=== PATIENT | female | born 1985 | race Caucasian/White ===

== ENCOUNTER 2020-06-11 09:15 | Emergency (ER) | payer OTHER, SELFPAY ==
[2020-06-11 09:34] VITALS: BP 144/102; PULSE 86; RESP 16; TEMP 36.2; O2SAT 99
--- NOTE | 2020-06-11 09:52 | ED.URI ---
HPI - URI/Sore Throat General Chief Complaint: Upper Respiratory Infection Stated Complaint: upper respiratory infection Time Seen by Provider: 06/11/20 09:36 Source: patient and RN notes reviewed Mode of arrival: ambulatory Limitations: no limitations History of Present Illness HPI Narrative: Patient presents today complaining of a 2-day history of sore throat, postnasal drip, bilateral ear pain and muffling, intermittent cough, rhinorrhea. Patient took 5 doses of the leftover amoxicillin at home, which helped resolve her sore throat. She has also been taking Tylenol, ibuprofen, and Mucinex without much relief. MD elicited complaint: sore throat and nasal congestion Related Data Allergies Allergy/AdvReac Type Severity Reaction Status Date / Time No Known Allergies Allergy Mild Unverified 06/11/20 09:28 Review of Systems Review of Systems: Narrative: CONSTITUTIONAL: Denies body aches, fever, chills, or sweats. EYES: Denies visual changes, redness, or discharge. ENT: + Rhinorrhea, nasal congestion, muffled hearing, bilateral ear pain, sore throat?resolved CARDIOVASCULAR: Denies chest pain, palpitations, or edema. RESPIRATORY: Denies dyspnea.+ Cough GASTROINTESTINAL: Denies abdominal pain, nausea, vomiting, or diarrhea. GENITOURINARY: Denies dysuria or hematuria. SKIN: Denies rash, itching, or wounds. MUSCULOSKELETAL: Denies back pain, joint pain, or myalgia. NEUROLOGIC: Denies headache, numbness, tingling, or weakness. PSYCH: Denies depression or anxiety. [facility] Family History Family History (Updated 06/03/19 @ 11:13 by DOCTOR UNKNOWN) Grandparent Diabetes mellitus Other Family history of malignant neoplasm of breast in first degree relative Social History Social History Smoking status: Never smoker Alcohol intake: current Comments At time of signature, I have reviewed and agree with nursing past medical, surgical, social and family history unless otherwise noted. Please see nursing chart for further information. There is no relevant family history pertinent to the presenting complaint Exam Narrative: Exam Narrative: GENERAL: Well-appearing, well-nourished, and in no acute distress. Diaphoretic under her mask. HEAD: Normocephalic, atraumatic. EYES: EOMI. No redness or drainage. Conjunctivae normal. ENT: Mucous membranes pink and moist. Nares congested. No rhinorrhea. Right TM is severely erythematous and bulging with purulent material. Left TM is mildly erythematous with clear fluid. Throat normal. Uvula midline. NECK: Normal AROM. Supple. No lymphadenopathy. CHEST: No respiratory distress. Clear to auscultation. HEART: Regular rate and rhythm. No murmur appreciated. Normal peripheral pulses. EXTREMITIES: Normal range of motion. No edema. SKIN: Warm, dry, no rash. Capillary refill normal. Normal skin turgor. NEURO: No focal deficits. Alert and oriented x3. Gait steady. PSYCH: Normal affect. No signs of depression or anxiety. Course Vital Signs Vital signs: Vital Signs Temperature 97.1 F L 06/11/20 09:34 Pulse Rate 86 06/11/20 09:34 Respiratory Rate 16 06/11/20 09:34 Blood Pressure 144/102 H 06/11/20 09:34 Pulse Oximetry 99 06/11/20 09:34 Temperature 97.1 F L 06/11/20 09:34 Pulse Rate 86 06/11/20 09:34 Respiratory Rate 16 06/11/20 09:34 Blood Pressure 144/102 H 06/11/20 09:34 Pulse Oximetry 99 06/11/20 09:34 Reviewed. Pt has been instructed to follow up with her PCP regarding her elevated blood pressure today. MDM - URI/Sore Throat Differential Diagnosis Differential diagnosis: Likely upper respiratory infection, otitis media, viral infection, bronchitis, pharyngitis and other (Strep throat) Lab Data Attestation: I reviewed the patient's lab results. Critical Care Time Critical Care Time Critical Care Time: No Discharge Plan Discharge Clinical Impression: Otitis media Qualifiers: Otitis media type: suppurative Chronicity: acute Laterality: r
[2020-06-11 10:00] VITALS: BP 120/86
== END 2020-06-11 10:00 | disposition home or self-care (01) ==
PROVIDERS: Emergency Provider Nurse Practitioner; PCP Internal Medicine
DX: H66.001 Acute suppurative otitis media without spontaneous rupture of ear drum, right ear (principal); J06.9 Acute upper respiratory infection, unspecified
CPT/HCPCS: 87081; 87880; 99213; G0463

== ENCOUNTER 2020-08-22 16:53 | Emergency (ER) | payer OTHER, SELFPAY ==
[2020-08-22 17:02] VITALS: BP 134/86; PULSE 86; RESP 16; TEMP 36.3; O2SAT 100
--- NOTE | 2020-08-22 17:23 | ED.URI ---
HPI - URI/Sore Throat General Chief Complaint: Upper Respiratory Infection Stated Complaint: Sore Throat Time Seen by Provider: 08/22/20 17:15 Source: patient and RN notes reviewed Mode of arrival: ambulatory Limitations: no limitations History of Present Illness HPI Narrative: Patient presents today with a 2-day history of sore throat, bilateral ear pain, increased tearing, rhinorrhea, and congestion. Denies cough, fever, loss of taste or smell. Currently rates her sore throat 05/11. She has been trying Claritin, nasal decongestant, and Tylenol without much relief. MD elicited complaint: sore throat Related Data Home Medications Medication Instructions Recorded Confirmed Unknown Iud 08/22/20 Allergies Allergy/AdvReac Type Severity Reaction Status Date / Time No Known Allergies Allergy Mild Verified 08/22/20 17:10 Review of Systems Review of Systems: Narrative: CONSTITUTIONAL: Denies body aches, fever, chills, or sweats. EYES: Denies visual changes, redness, or discharge.+ Clear eye drainage ENT: + Bilateral ear pain, sore throat, rhinorrhea, congestion CARDIOVASCULAR: Denies chest pain, palpitations, or edema. RESPIRATORY: Denies cough or dyspnea. GASTROINTESTINAL: Denies abdominal pain, nausea, vomiting, or diarrhea. GENITOURINARY: Denies dysuria or hematuria. SKIN: Denies rash, itching, or wounds. MUSCULOSKELETAL: Denies back pain, joint pain, or myalgia. NEUROLOGIC: Denies headache, numbness, tingling, or weakness. PSYCH: Denies depression or anxiety. [facility] Family History Family History (Updated 06/03/19 @ 11:13 by DOCTOR UNKNOWN) Grandparent Diabetes mellitus Other Family history of malignant neoplasm of breast in first degree relative Social History Social History Smoking status: Never smoker Alcohol intake: current Gender identity (if verbalized by the patient): Female Comments At time of signature, I have reviewed and agree with nursing past medical, surgical, social and family history unless otherwise noted. Please see nursing chart for further information. There is no relevant family history pertinent to the presenting complaint Exam Narrative: Exam Narrative: GENERAL: Well-appearing, well-nourished, and in no acute distress. HEAD: Normocephalic, atraumatic. EYES: EOMI. PERRL. No redness or drainage. Conjunctivae normal. Increased tearing. ENT: Mucous membranes pink and moist. Nares congested with rhinorrhea. TMs normal bilaterally. Throat very mildly erythematous posteriorly with clear postnasal drainage. No edema or exudate. Uvula midline. NECK: Normal AROM. Supple. No lymphadenopathy. CHEST: No respiratory distress. Clear to auscultation. HEART: Regular rate and rhythm. No murmur appreciated. Normal peripheral pulses. EXTREMITIES: Normal range of motion. No edema. SKIN: Warm, dry, no rash. Capillary refill normal. Normal skin turgor. NEURO: No focal deficits. Alert and oriented x3. Gait steady. PSYCH: Normal affect. No signs of depression or anxiety. Course Vital Signs Vital signs: Vital Signs Temperature 97.3 F L 08/22/20 17:02 Pulse Rate 86 08/22/20 17:02 Respiratory Rate 16 08/22/20 17:02 Blood Pressure 134/86 08/22/20 17:02 Pulse Oximetry 100 08/22/20 17:02 Temperature 97.3 F L 08/22/20 17:02 Pulse Rate 86 08/22/20 17:02 Respiratory Rate 16 08/22/20 17:02 Blood Pressure 134/86 08/22/20 17:02 Pulse Oximetry 100 08/22/20 17:02 Reviewed. Pt has been instructed to follow up with her PCP regarding her elevated blood pressure today. MDM - URI/Sore Throat Differential Diagnosis Differential diagnosis: Likely upper respiratory infection, otitis media, viral infection, pharyngitis and other (Strep throat, rhinitis) Lab Data Attestation: I reviewed the patient's lab results. Labs: Strep Screen Presumptive Negative *(Reference Range: Negative)* Critical Care Time
== END 2020-08-22 17:29 | disposition home or self-care (01) ==
PROVIDERS: Emergency Provider Nurse Practitioner; PCP Internal Medicine
DX: J02.9 Acute pharyngitis, unspecified (principal)
CPT/HCPCS: 87081; 87880; 99213; G0463

== ENCOUNTER 2021-07-10 09:19 | Emergency (ER) | payer OTHER, SELFPAY ==
[2021-07-10 09:38] VITALS: BP 120/84; PULSE 82; RESP 16; TEMP 36.1; O2SAT 99
--- NOTE | 2021-07-10 10:31 | ED.EYEPROB ---
HPI - Eye Problem General Chief complaint: Eye Problems Stated complaint: mariaa redness eyes Time Seen by Provider: 07/10/21 10:31 Source: patient, family and RN notes reviewed Mode of arrival: ambulatory Limitations: no limitations History of Present Illness HPI Narrative: 36 year old female who presents to [facility] care with complaints of bilateral eye redness, drainage especially in the morning with crusting on lashes noted, itching and pain. since Thursday night. Patient states daughter had pinkeye approximately 3 weeks ago and she thinks that she may of used her mascara. Patient states she used mascara Mo night and before bed she noticed redness to her eyes with symptoms progressing since then with left eye greater than right.Patient denies any acute sharp pain to the eyes denies any visual changes. Patient states she has used some eyedrops that had been prescribed and her daughter was diagnosed with pinkeye but has run out with symptoms continuing. MD chief complaint: eye redness Related Data Home Medications Medication Instructions Recorded Confirmed Unknown Iud 08/22/20 Allergies Allergy/AdvReac Type Severity Reaction Status Date / Time No Known Allergies Allergy Mild Verified 07/10/21 10:28 Review of Systems Review of Systems: CONSTITUTIONAL: Denies fever, chills, or sweats. EYES: Denies visual changes,positive for redness, or discharge bilateral eyes, itching and discomfort ENT: Denies rhinorrhea, congestion, sore throat, or otalgia. CARDIOVASCULAR: Denies chest pain, palpitations, or edema. RESPIRATORY: Denies cough or dyspnea. GASTROINTESTINAL: Denies abdominal pain, nausea, vomiting, or diarrhea. GENITOURINARY: Denies dysuria or hematuria. SKIN: Denies rash or itching. MUSCULOSKELETAL: Denies back pain, joint pain, or myalgia. NEUROLOGIC: Denies headache, numbness, or weakness. PSYCHIATRIC: Positive history in past with of family member anxiety or depression. All systems reviewed & are unremarkable except as noted in HPI and below PMFSH Past Medical History Medical History Bronchitis Surgical History Surgical History (Updated 07/10/21 @ 10:54 by Elizabet Shafer NP) Hx of tonsillectomy Family History Family History (Updated 07/10/21 @ 10:55 by Elizabet Shafer NP) Grandparent Diabetes mellitus Arthritis Other Family history of malignant neoplasm of breast in first degree relative Social History Social History (Updated 07/10/21 @ 10:55 by Elizabet Shafer NP) Smoking status: Never smoker Alcohol intake: current Substance use: never Living arrangements: with family Gender identity (if verbalized by the patient): Female Comments At time of signature, agree with nursing past medical, surgical, social and family history. There is no relevant family history pertinent to the presenting complaint Exam Narrative: GENERAL: Well-appearing, well-nourished, and in no acute distress. HEAD: Normocephalic, atraumatic. EYES: PERRLA and EOMI.bilateral sclera and conjunctiva redness with some yellowish drainage from eyes, no sharp eye pain or acute visual changes ENT: Nares clear, no rhinorrhea or epistaxis. Mucous membranes moist. NECK: Supple. no lymphadenopathy CHEST: Clear to auscultation. No respiratory distress.SAO2 99% on room air HEART: Regular rate and rhythm. No murmur heard. Normal peripheral pulses. ABDOMEN: Soft, nontender, nondistended, normal active bowel sounds. EXTREMITIES: Normal range of motion. No edema. SKIN: Warm, dry, no rash. NEURO: No focal deficits. Alert and oriented x3. Course Vital Signs Vital signs: Vital Signs Temperature 36.1 C L 07/10/21 09:38 Pulse Rate 82 07/10/21 09:38 Respiratory Rate 16 07/10/21 09:38 Blood Pressure 120/84 07/10/21 09:38 Pulse Oximetry 99 07/10/21 09:38 Temperature 36.1 C L 07/10/21 09:38 Pulse Rate 82 07/10/21 09:38 Respiratory Rate 16
== END 2021-07-10 10:55 | disposition home or self-care (01) ==
PROVIDERS: Emergency Provider Registered Nurse; PCP Internal Medicine
DX: H10.9 Unspecified conjunctivitis (principal)
CPT/HCPCS: 99213; G0463

== ENCOUNTER 2022-01-02 11:58 | Emergency (ER) | payer OTHER, SELFPAY ==
[2022-01-02 12:06] VITALS: BP 135/88; PULSE 95; RESP 16; TEMP 37.1; O2SAT 99
--- NOTE | 2022-01-02 12:08 | ED.URI ---
HPI - URI/Sore Throat General Chief Complaint: Upper Respiratory Infection Stated Complaint: uri Time Seen by Provider: 01/02/22 12:09 Source: patient, RN notes reviewed and old records reviewed Mode of arrival: ambulatory Limitations: no limitations History of Present Illness HPI Narrative: 36-year-old female presents to [facility] Care with complaints of 2 week history of initial sore throat then developed sinus congestion and drainage with facial pressure and frontal headache. Patient reports that she has been taking Mucinex, Claritin and Advil and Tylenol for her symptoms without resolution. Patient reports that she has copious amount of nasal drainage which is greenish tinged with some streaks of blood noted for the past few days., denies any acute cough or any shortness of breath. Patient reports that she has had no known fevers but has noted some chills and sweats at night. MD elicited complaint: rhinorrhea and nasal congestion Related Data Home Medications Medication Instructions Recorded Confirmed Unknown Iud 08/22/20 Allergies Allergy/AdvReac Type Severity Reaction Status Date / Time No Known Allergies Allergy Mild Verified 07/10/21 10:28 Review of Systems Review of Systems: CONSTITUTIONAL: Denies known fever, some chills, or sweats. EYES: Denies visual changes, redness, or discharge. ENT: Positive for rhinorrhea, congestion, sore throat, no otalgia. CARDIOVASCULAR: Denies chest pain, palpitations, or edema. RESPIRATORY: Denies cough or dyspnea. GASTROINTESTINAL: Denies abdominal pain, nausea, vomiting, or diarrhea. GENITOURINARY: Denies dysuria or hematuria. SKIN: Denies rash or itching. MUSCULOSKELETAL: Denies back pain, joint pain, or myalgia. NEUROLOGIC: Positive frontal headache, facial pressure, no numbness, or weakness. PSYCHIATRIC: Denies anxiety positive for history of episode of depression with loss of family member. All systems reviewed & are unremarkable except as noted in HPI and below PMFSH Past Medical History Medical History (Updated 01/02/22 @ 12:36 by Elizabet Shafer NP) Bronchitis Episode of depression Surgical History Surgical History Hx of tonsillectomy Family History Family History Grandparent Diabetes mellitus Arthritis Other Family history of malignant neoplasm of breast in first degree relative Social History Social History (Updated 01/02/22 @ 12:23 by Elizabet Shafer NP) Smoking status: Current every day smoker Tobacco type: e-cigarettes/vaping Additional smoking assessment comments: previous cigarette smoker Alcohol intake: current Substance use: never Living arrangements: with family Gender identity (if verbalized by the patient): Female Comments At time of signature, agree with nursing past medical, surgical, social and family history. There is no relevant family history pertinent to the presenting complaint Exam Narrative: GENERAL: Well-appearing, well-nourished, and in no acute distress. HEAD: Normocephalic, atraumatic. EYES: PERRLA and EOMI. ENT: Nares red with greenish blood tinged rhinorrhea no epistaxis. Mucous membranes moist.TM's normal with dull light reflex, throat red with no lesions or exudates, tonsils absent NECK: Supple. no lymphadenopathy CHEST: Clear to auscultation. No respiratory distress. SAO2 99% on room air HEART: Regular rate and rhythm. No murmur heard. Normal peripheral pulses. ABDOMEN: Soft, nontender, nondistended, normal active bowel sounds. EXTREMITIES: Normal range of motion. No edema. SKIN: Warm, dry, no rash. NEURO: No focal deficits. Alert and oriented x3. Course Course Level of Care: Express Care Visit Vital Signs Vital signs: Vital Signs Temperature 37.1 C 01/02/22 12:06 Pulse Rate 95 01/02/22 12:06 Respiratory Rate 16 01/02/22 12:06 Blood Pressure 135/88 01/02/22 12:06 Puls
[2022-01-02 12:14] VITALS: BP 135/88; PULSE 95; RESP 16; TEMP 37.1; O2SAT 99
== END 2022-01-02 12:30 | disposition home or self-care (01) ==
PROVIDERS: Emergency Provider Registered Nurse; PCP Internal Medicine
DX: J01.40 Acute pansinusitis, unspecified (principal); J02.9 Acute pharyngitis, unspecified; F17.200 Nicotine dependence, unspecified, uncomplicated
CPT/HCPCS: 99213; G0463

== ENCOUNTER 2024-08-08 06:03 | Emergency (ER) | payer OTHER, SELFPAY ==
--- NOTE | ~2024-08-08 | US_ITS ---
Limited Abdominal Sonogram: Real-time sonographic imaging of the right upper quadrant was performed. Clinical History: Gallbladder polyp, abdominal pain Findings: The liver appears normal with no evidence of mass lesion or bile duct dilatation. Main por uday vein demonstrates normal direction of flow. The gallbladder is well distended, and demonstrates p robable small stones the gallbladder neck. The common bile duct measures 5 mm. The visualized pancre as, aorta, and IVC are unremarkable. Impression: Probable small stones the gallbladder neck. Reviewed, dictated and finalized at location M. Impression: Probable small stones the gallbladder neck.
--- NOTE | ~2024-08-08 | CT_ITS ---
CT of the Abdomen and Pelvis: Indication: Abdominal pain Technique: 2.5 mm axial scans were obtained through the abdomen and pelvis following intravenous adm inistration of 100 cc of Omnipaque 350. Dose reduction technique was used on this scan by utilizing a utomated exposure control and iterative reconstruction technique. The dose-length product (DLP) was 8 11.05 mGy-cm. Findings: Scans through the lung bases are unremarkable. The liver, spleen, pancreas, adrenals and kidneys are within normal limits. Suspected small gallbladd er wall polyp. No evidence of aortic aneurysm. No lymphadenopathy. No bowel obstruction or bowel wall thickening. There is no evidence to suggest acute appendicitis. Images through the pelvis were performed. Urinary bladder unremarkable. No adnexal mass seen. IUD in place. No ascites. Impression: No acute abnormalities seen. Suspected small gallbladder wall polyp. Reviewed, dictated and finalized at [facility]. Impression: No acute abnormalities seen. Suspected small gallbladder wall polyp.
[2024-08-08 06:17] VITALS: BP 122/93; PULSE 97; RESP 18; TEMP 36.6; O2SAT 100
[2024-08-08 06:20] VITALS: BP 122/93; PULSE 101; RESP 18; O2SAT 99
[2024-08-08 06:38] LABS: Basophils Absolute Auto 0.1 K/mm3 (0.0-0.1); Basophils Percent Auto 0.5 % (0.2-1.2); Eosinophils Percent Auto 8.5 % (0-4.4); Hematocrit 41.1 % (37.0-47.0); Hemoglobin 14.3 g/dL (12.0-15.0); Immature Granulocyte Absolute 0.03 K/mm3 (0.00-0.031); Immature Granulocyte Percent A 0.3 % (0-0.5); Lymphocytes Absolute Auto 4.07 K/mm3 (0.9-3.2); Lymphocytes Percent Auto 36.4 % (18.3-44.2); Mean Corpuscular HGB Conc 34.8 g/dl (32-36); Mean Corpuscular Volume 91.9 fl (80-100); Mean Platelet Volume 9.3 fl (7.4-10.4); Monocytes Absolute Auto 0.6 K/mm3 (0.1-0.6); Monocytes Percent Auto 5.6 % (2.6-8.5); Neutrophils Absolute Auto 5.4 K/mm3 (1.3-6.7); Neutrophils Percent Auto 48.7 % (45.5-73.1); Platelet Count Result 376 k/mm3 (150-375); Red Blood Count 4.47 M/mm3 (4.2-5.4); Red Cell Distribution Width 11.4 % (11.5-14.5); White Blood Count 11.2 K/mm3 (4.5-10.0)
[2024-08-08 06:44] LABS: Add Urine Microscopic? NO; Appearance Urine Clear (Clear); Bacteria Urine None Seen /hpf; Bilirubin Urine Negative (Negative); Blood Urine Non-Hemolyzed Trace (Negative); Color Urine Yellow (Yellow); Glucose Urine UA Negative (Negative); Ketones Urine Negative (Negative); Leukocyte Esterase Ur Negative LEU/UL (Negative); Nitrate Urine Negative (Negative); Non Pathogenic Casts 0-2; Protein Urine Negative (Negative); RBC Urine 0-2 /hpf (0-2); Specific Grav Ur 1.023 (1.001-1.035); Squamous Epithelial Cell Urine Occasional /hpf (Few); WBC Urine 0-5 /hpf (0-3); pH Urine 5.5 (5.0-9.0)
[2024-08-08 06:46] LABS: BEDSIDEPREGUCG Negative (Negative)
[2024-08-08 06:48] LABS: Alanine Aminotransferase 24 U/L (6-35); Albumin Level 4.6 g/dL (3.5-5.1); Alkaline Phosphatase 54 U/L (38-126); Anion Gap 10 mmol/L (4-12); Aspartate Amino Transferase 24 U/L (14-36); Bilirubin,Total 0.5 mg/dL (0.2-1.3); Blood Urea Nitrogen 12 mg/dL (7-17); Calcium 9.5 mg/dL (8.4-10.2); Carbon Dioxide 25 mmol/L (22-30); Chloride 103 mmol/L (98-107); Estimated CRCL calculation 111 ml/min; Estimated Glomerular Filt Rate > 60; Glucose 145 mg/dL (65-110); Lipase 374 U/L (23-300); Potassium 3.9 mmol/L (3.4-5.0); Sodium 138 mmol/L (137-145)
[2024-08-08 07:16] VITALS: BP 127/99; PULSE 76; RESP 15; O2SAT 100
--- NOTE | 2024-08-08 07:52 | ED.ABDPAIN ---
HPI - Abdominal Pain General Chief Complaint: Abdominal Pain Stated Complaint: Woke up with right abd/back pain Time Seen by Provider: 08/08/24 06:59 History of Present Illness HPI narrative: 39-year-old female presenting to the emergency department for evaluation for right upper quadrant abdominal pain. Patient has no prior history of pancreatitis or gallbladder issues. Patient states she woke up with intense right upper quadrant abdominal pain that radiates into her back. Patient states since the pain started has significantly improved. Patient states she is resting more comfortably than previous. Patient is currently declining any medications for pain control. Related Data Home Medications Medication Instructions Recorded Confirmed Unknown Iud 08/22/20 01/28/24 compounded semaglutide subcut 01/28/24 01/28/24 Allergies Allergy/AdvReac Type Severity Reaction Status Date / Time No Known Allergies Allergy Mild Verified 08/08/24 06:21 Review of Systems Review of Systems: All systems reviewed & are unremarkable except as noted in HPI and below PMFSH Past Medical History Medical History Bronchitis Episode of depression Surgical History Surgical History Hx of tonsillectomy Family History Family History Grandparent Diabetes mellitus Arthritis Other Family history of malignant neoplasm of breast in first degree relative Social History Social History Smoking status: Former smoker Tobacco type: e-cigarettes/vaping Additional smoking assessment comments: previous cigarette smoker Alcohol intake: current Substance use: never Lack of Transportation: No Lack of Food: Never True Current Housing: I Have Housing Concerned About Future Housing: No Difficulty Paying Gas/Electric Bills: No Difficulty Paying for Meds: No Currently Unemployed: No Education: High School Diploma/GED Difficulty w/ Childcare or Family Care: No Living arrangements: with family Gender identity (if verbalized by the patient): Female Exam Narrative: APPEARANCE: Well appearing, no pain, no distress, well-nourished. HEAD: normocephalic, atraumatic. EYES: PERRLA/EOMI, conjunctivae clear. NOSE: Normal no drainage EARS:TMS clear with good light reflex. THROAT: Pharynx clear, no exudate. NECK: Supple. No adenopathy, no masses. RESPIRATORY: Airway patent, respirations nonlabored. Clear to auscultation bilaterally, no rales, rhonchi, wheezing. CARDIOVASCULAR: Regular rate and rhythm without murmurs rubs or gallops. ABDOMINAL: Right upper quadrant and epigastric tenderness MUSCULOSKELETAL: Moves all extremities. Strength/ROM intact, No edema, No calf tenderness. NEURO: Alert. Cranial nerves II through XII intact. Good gait. Good coordination SKIN: Warm, dry. Normal Color Course Course Emergency Course: Patient did feel improved with treatment. Vital Signs Vital signs: Vital Signs Temperature 97.8 F 08/08/24 06:17 Pulse Rate 97 08/08/24 06:17 Respiratory Rate 18 08/08/24 06:17 Blood Pressure 122/93 H 08/08/24 06:17 Pulse Oximetry 100 08/08/24 06:17 Oxygen Delivery Room Air 08/08/24 06:17 Temperature 97.5 F L 08/08/24 09:27 Pulse Rate 66 08/08/24 09:27 Respiratory Rate 15 08/08/24 09:27 Blood Pressure 109/78 08/08/24 09:27 Pulse Oximetry 98 08/08/24 09:27 Oxygen Delivery Room Air 08/08/24 06:17 MDM - Abdominal Pain MDM Narrative Medical decision making narrative: 39-year-old female present to the emergency department for evaluation for right upper quadrant pain. Patient's lipase was mildly elevated at 374. Patient does have a leukocytosis at 11.2. Patient has a normal hemoglobin. Patient has no significant elevation he
[2024-08-08 08:44] VITALS: BP 111/82; PULSE 71; RESP 16; O2SAT 99
[2024-08-08 09:27] VITALS: BP 109/78; PULSE 66; RESP 15; TEMP 36.4; O2SAT 98
== END 2024-08-08 09:29 | disposition home or self-care (01) ==
PROVIDERS: Internal Medicine Critical Care Medicine; Emergency Provider Emergency Medicine; PCP Nurse Practitioner Family
DX: K80.70 Calculus of gallbladder and bile duct without cholecystitis without obstruction (principal); Z87.891 Personal history of nicotine dependence
CPT/HCPCS: 36415; 74177; 76705; 80053; 81003; 81025; 83690; 85025; 99284; Q9967

== ENCOUNTER 2025-03-20 14:10 | Outpatient (CLI) | payer OTHER, SELFPAY ==
--- OUTSIDE RECORDS SUMMARY | 2025-03-20 14:22 | XMS_ITS | Clinical Summary ---
Author Organization [facility] Address [address] [place] [address] Care Team Providers Care Passenger Representative Name Role Phone Unknown, Provider Primary Care Provider Unavaila ble Source Comments [facility],non-owned Affiliates and Associated Physician Practices is amultiple site organization consisting of ambulatory clinics and hospital sitesin [place], [place], [place] and [place]. This disclosure is being madepursuant to the Care Everywhere program and may not contain all information available regarding this patient. Last updated 18.[facility] Allergies No known active allergies Medications * Be aware that medications may not be up to date on this document. Alwaysverify current medications with the patient. 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 Gender Identity Not on file Sexual Orientation Not on file Last Filed Vital Signs Vital Sign Reading Time Taken Comments Blood Pressure 124/82 11/28/2019 11:18 AM PATTERN DRUM MAKER Pulse 77 11/28/2019 11:18 AM PATTERN DRUM MAKER Temperature 36.6 C (97.8 F) 11/28/2019 11:18 AM PATTERN DRUM MAKER Respiratory Rate 16 11/28/2019 11:18 AM PATTERN DRUM MAKER Oxygen Saturation 98% 11/28/2019 11:18 AM PATTERN DRUM MAKER Inhaled Oxygen Concentration - - Weight 97.5 kg (215 lb) 11/28/2019 11:18 AM PATTERN DRUM MAKER Height 170.2 cm (5' 7 ) 11/28/2019 11:18 AM PATTERN DRUM MAKER Body Mass Index 33.67 11/28/2019 11:18 AM PATTERN DRUM MAKER Plan of Treatment Health Maintenance Due Date Last Done Comments HIV SCREENING 2002 HEPATITIS C SCREENING 06/17/2005 DTAP/TDAP/TD VACCINES (1 - Tdap) 2006 HEPATITIS B VACCINE (1 of 3 - 19+ 3-dose series) 2006 COVID-19 VACCINE (1 - 2023-2 5 season) 2024 DEPRESSION SCREENING 11/02/2024 INFLUENZA VACCINE (Season Ended) 2025 ZOSTER VACCINE (1 of 2) 2037 HIB VACCINE Aged Out No longer eligi ble based on patient's age to complete this topic HPV VACCINE Aged Out No longer eligi ble based on patient's age to complete this topic MENINGOCOCCAL (Group B) VACC INE SHARED DECISION-MAKING Aged Out No longer eligibl e based on patient's age to complete this topic MENINGOCOCCAL GROUPS A/C/Y/W VACCINE Aged Out No longer eligible b ased on patient's age to complete this topic PNEUMOCOCCAL VACCINE Aged Out No long er eligible based on patient's age to complete this topic Insurance AETNA Care Teams Passenger Representative Relationship Specialty Start Date End Date Unknown, Provider PCP - General 11/28/19
[2025-03-20 15:31] LABS: Alanine Aminotransferase 23 U/L (6-35); Albumin Level 4.9 g/dL (3.5-5.1); Alkaline Phosphatase 59 U/L (38-126); Amylase 81 U/L (30-110); Aspartate Amino Transferase 33 U/L (14-36); Bilirubin,Total 0.3 mg/dL (0.2-1.3); Lipase 231 U/L (23-300)
== END 2025-03-20 14:11 | disposition home or self-care (01) ==
LOC: ANHSURGERY 14:19
PROVIDERS: PCP Nurse Practitioner Family; Visit Provider Surgery
DX: K80.10 Calculus of gallbladder with chronic cholecystitis without obstruction (principal); Z01.818 Encounter for other preprocedural examination
CPT/HCPCS: 36415; 80076; 82150; 83690

== ENCOUNTER 2025-03-23 01:48 | Day surgery (SDC) | payer OTHER, SELFPAY ==
[2025-03-14 11:08] VITALS: BMI 32.8
--- NOTE | 2025-03-14 14:19 | PC.NURSE ---
Report to the Outpatient Waiting Room, entrance under the green pavilion located off [facility], at time _10AM__ on date _03/23/25____. Planned Procedure Time: ___12AM .? Time changes happen often and if your time is changed the preop area will call you the afternoon before. - You and your visitor will be asked to self-screen and do not enter if you have any COVID symptoms. Please call surgeon if you need to reschedule. - A mask is optional within the hospital at this time. Patients may have clear liquids (water, carbonated beverages, clear teas, apple juice) until 3 hours prior to surgery with a maximum of 20 ounces. - No food from midnight until time of surgery and no smoking, or chewing tobacco (or any form of nicotine). No chewing gum, candy or mints. Take only the following medications with a SIP of water on the morning of surgery: __NONE DO NOT STOP ANY OF YOUR OTHER PRESCRIPTION MEDICATIONS PRIOR TO SURGERY EXCEPT THE FOLLOWING Hold all vitamins and supplements for 3 days per anesthesiologist. Medications to discontinue per physician N/A Date to take last dose N/A Please no make-up, nail turkish, hairspray, perfume, deodorant, or body powder the day of surgery.? No jewelry (including any body piercings) or valuables the day of surgery, leave them at home.? Please take a shower or bath the night before, or the morning of, surgery with an antibacterial soap.? Wear comfortable, loose fitting clothing.? - Jewelry must be removed prior to entering the operating room.? Rings and piercings that are not removed may be cut off. - The hospital will not accept responsibility for valuables.? - Please leave all valuables, including medications, at home the day of surgery. If you are going home after surgery, a licensed food service driver must drive you home.? - NO public transportation without another adult if you receive anesthesia. - We recommend that an adult stay with you for 24 hours following discharge. - We also recommend that you do not drive, make important decision, drink alcoholic beverages, or take any drugs that were not prescribed by your health care provider for at least 24 hours after your discharge time. Follow any additional instructions given to you from your surgeon. Telephone instructions given to __JAMIE and asked if any additional questions and then verbalized understanding. Patient advised to call surgeon office or pre surgery nurse liaison [phone] if any additional questions.
--- NOTE | 2025-03-22 13:09 | P.SS_ITS ---
Same Day Admit/Disch: HPI History of Present Illness Chief complaint: chronic cholecystitis with stones Narrative: Jac Gardner is a 39 year old female who has had at least a couple of episodes of postprandial right upper quadrant severe pain. This is worse with fatty foods. Her ultrasound showed gallstones. After discussion, she is taken now to surgery for laparoscopic cholecystectomy PMFSH Past Medical History Medical History Episode of depression Bronchitis Surgical History Surgical History Hx of tonsillectomy Family History Family History Grandparent Diabetes mellitus Arthritis Other Family history of malignant neoplasm of breast in first degree relative Social History Social History Smoking packs per day: 1 Smoking cigarettes per day: 20.0 Years smoked: 10 Smoking pack-years: 10.00 Smoking status: Current every day smoker Tobacco type: e-cigarettes/vaping Additional smoking assessment comments: QUIT SMOKING 2019 AND BEGAN VAPING Alcohol intake: current Substance use: never Substance use type: does not use Do You Feel Safe in your Home?: Yes Lack of Transportation: No Lack of Food: Never True Current Housing: I Have Housing Concerned About Future Housing: No Difficulty Paying Gas/Electric Bills: No Difficulty Paying for Meds: No Currently Unemployed: No Education: High School Diploma/GED Difficulty w/ Childcare or Family Care: No Living arrangements: with family Occupation/Education: occupation 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[employer] Gender identity (if verbalized by the patient): Female Spiritual care concerns: No Same Day Admit/Disch: Med Pre-admit Medications Home Medications ?Medication ?Instructions ?Recorded ?Confirmed ?Type Unknown Iud 08/22/20 01/28/25 History ketorolac 10 mg tablet 10 mg PO Q6H 4 days #16 tabs 03/23/25 Rx oxycodone-acetaminophen 5 mg-325 0.5 - 1 tablet PO Q4H PRN pain #10 03/23/25 Rx mg tablet (Percocet) tabs Review of Systems Review of Systems All systems reviewed & are unremarkable except as noted in HPI and below (HPI) Exam Const: General: comfortable, no acute distress, alert and awake HENMT: Head: normocephalic and atraumatic Mouth: Yes Normal oral and palatal mucosa present Eyes: Conjunctivae: conjunctivae normal Pupils: Equal, round and reactive p upils present EOM: EOMs intact bilaterally Neck: Neck: normal visual inspection, no lymphadenopathy and nontender Resp: Effort & Inspection: normal respiratory effort Auscultation: clear to auscultation bilaterally Cardio: Rate: regular rate Rhythm: regular rhythm Heart sounds: no gallops, no murmurs and no rubs GI: Inspection: non-distended GI Palp: Yes Soft to palpation, No Tenderness to palpation present (GI), No Hepatomegaly present and No Splenomegaly present Skin: Lesions: no lesions Rashes: no rashes Neuro: General: no focal motor deficits and CN's II-XI intact bilaterally Cranial nerves: Yes Equal, round and reactive pupils present, Yes Bilaterally intact EOM present, Yes facial symmetry and Yes Midline tongue present Speech: normal speech Motor exam (neuro): 5/5 motor strength present throughout and Motor abnormalities not present Extrem: General: no clubbing, cyanosis or edema and edema Psych: Affect: normal affect Thought process: Normal thought process present Insight: Good insight present (Psych) DS: Summary Time Spent with Patient Time attestation: Total time spent providing and/or coordinating discharge services: DS: Admitting Diagnosis Discharge Date 03/23/2025 Admitting Diagnosis * Chronic cholecystitis, cholelithiasis-plan to proceed with laparoscopic cholecystectomy under anesthesia. The procedure, risks, benefits were discussed. The usual length of the surgery and length of the recovery were discussed. All questions were answered. She understands and agrees to go ahead. DS: Discharge Diagnosis Discharge Diagnosis (1) Chronic cholecystitis with calculus: Code(s): K80.10 - Calculus of gallbladder with chronic cholecystitis without obstruction Status: Acute Assessment and Plan: Laparoscopic cholecystectomy performed per Dr. Kennedy 03/23/2025 Discharge Plan Discharge Patient Disposition: Home Discharge Instructions: 1. May shower the day after surgery over incisions. 2. Call office for: -Wound increasingly painful or bleeding -Vomiting -Fever of greater than 101 degrees 3. Expect some blood on dressing and old blood on skin. 4. If no bowel movement for three days, take 1 oz. (30 ml) Milk of Magnesia, if no results, take Fleets enema. 5. No heavy lifting > 15-20 pounds for 2 weeks. 6. No driving for 3 days or while taking narcotic pain medications. 7. Up walking 10-30 minutes three times per day. 8. Resume previous home medications. 9. Follow-up 10-14 days in office for wound check or as previously scheduled. 10. Oral pain medications prescription to be sent home with patient. 11. NUTRITION: Start out by drinking fluids and increase your diet as tolerated. If you experience nausea, try dry toast, crackers, and 7-UP. If nausea or vomiting persists, contact your surgeon?s office. Patient Language: Slovenian Stand Alone Forms: General Discharge Instructions Follow-up/Referrals: Brodie Kennedy MD [Physician] - 2 Weeks (Call for appointment if you do not already have an appointment.) Discharge Medications: New ketorolac 10 mg tablet 10 mg PO Q6H 4 Days Qty: 16 0RF oxycodone-acetaminophen [Percocet] 5-325 mg tablet 0.5 - 1 tablet PO Q4H PRN (Reason: pain) Qty: 10 0RF Continued Unknown Iud
[2025-03-23] VITALS (9 sets, daily range): BP systolic 118–129; BP diastolic 77–88; PULSE 61–84; RESP 12–13; TEMP 36.5; O2SAT 96–100
--- OUTSIDE RECORDS SUMMARY | 2025-03-23 01:51 | XMS_ITS | Clinical Summary ---
Author Organization [facility] Address [address] [place] [address] Care Team Providers Care Legal Internship Name Role Phone Unknown, Provider Primary Care Provider Unavaila ble Source Comments [facility],non-owned Affiliates and Associated Physician Practices is amultiple site organization consisting of ambulatory clinics and hospital sitesin [place], [place], [place] and [place]. This disclosure is being madepursuant to the Care Everywhere program and may not contain all information available regarding this patient. 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 Gender Identity Not on file Sexual Orientation Not on file Last Filed Vital Signs Vital Sign Reading Time Taken Comments Blood Pressure 124/82 11/28/2019 11:18 AM DOT NET DEVELOPER Pulse 77 11/28/2019 11:18 AM DOT NET DEVELOPER Temperature 36.6 C (97.8 F) 11/28/2019 11:18 AM DOT NET DEVELOPER Respiratory Rate 16 11/28/2019 11:18 AM DOT NET DEVELOPER Oxygen Saturation 98% 11/28/2019 11:18 AM DOT NET DEVELOPER Inhaled Oxygen Concentration - - Weight 97.5 kg (215 lb) 11/28/2019 11:18 AM DOT NET DEVELOPER Height 170.2 cm (5' 7 ) 11/28/2019 11:18 AM DOT NET DEVELOPER Body Mass Index 33.67 11/28/2019 11:18 AM DOT NET DEVELOPER Plan of Treatment Health Maintenance Due Date [...] complete this topic Insurance AET[employer] Care Teams Legal Internship Relationship Specialty Start Date End Date Unknown, Provider PCP - General 11/28/19
[2025-03-23] MEDS: LACTATED RINGERS 1,000 ML 30 ML IV CONT ×2 (10:30→13:49)
[2025-03-23] MEDS: ACETAMINOPHEN 500 MG TABLET 1000 MG PO (10:35)
[2025-03-23] MEDS: KETOROLAC 15 MG/ML VIAL (*BKC) IV PUSH (10:35)
--- NOTE | 2025-03-23 11:49 | P.PNAN_ITS ---
Anes - Initial Pre Proc Eval Procedure: Operation Date: 03/23/25 12:00 Proposed Procedures p Laparoscopic Cholecystectomy - Brodie Kennedy MD Date/Time: 03/23/25 11:49 Surgeon: Brodie Kennedy MD Pre Op Diagnosis: chronic cholecystitis with stones Patient Data Age: 39 Gender: F Height: 1.7 m Weight: 95.6 kg Last Vital Signs Temp 36.5 C 03/23/25 10:38 Pulse 84 03/23/25 10:38 Resp 12 03/23/25 10:38 BP 129/81 03/23/25 10:38 Pulse Ox 99 03/23/25 10:38 O2 Del Method Room Air 03/23/25 10:38 Allergies Allergy/AdvReac Type Severity Reaction Status Date / Time No Known Allergies Allergy Mild Verified 03/23/25 10:35 Home Medications ?Medication ?Instructions ?Recorded ?Confirmed ?Type Unknown Iud 08/22/20 01/28/25 History Patient hx anesthesia problems: none Family hx anesthesia problems: none Results Review: All pre-operative results and documents have been reviewed as part of the pre- operative evaluation. [facility] Past Medical History Medical History Episode of depression Bronchitis Surgical History Surgical History Hx of tonsillectomy Family History Family History Grandparent Diabetes mellitus Arthritis Other Family history of malignant neoplasm of breast in first degree relative Social History Social History Smoking packs per day: 1 Smoking cigarettes per day: 20.0 Years smoked: 10 Smoking pack-years: 10.00 Smoking status: Current every day smoker Tobacco type: e-cigarettes/vaping Additional smoking assessment comments: QUIT SMOKING 2019 AND BEGAN VAPING Alcohol intake: current Substance use: never Substance use type: does not use Do You Feel Safe in your Home?: Yes Lack of Transportation: No Lack of Food: Never True Current Housing: I Have Housing Concerned About Future Housing: No Difficulty Paying Gas/Electric Bills: No Difficulty Paying for Meds: No Currently Unemployed: No Education: High School Diploma/GED Difficulty w/ Childcare or Family Care: No Living arrangements: with family Occupation/Education: occupation 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 Informed Consent: The patient's anesthetic plan and its attendant risks and benefits were discussed with the patient/family/POA. Questions were solicited and answers provided to the satisfaction of the patient/family/POA.
--- NOTE | 2025-03-23 11:59 | WPDHPUPDATE1 ---
History and Physical Update Update Date/Time: 03/23/25 11:59 History and Physical has been reviewed, including an updated exam of the patient. There are NO changes in the patient's condition. Risks, benefits, and alternatives have been discussed and questions answered. Patient agrees to proceed with procedure.
[2025-03-23] MEDS: ceFAZolin 2 GM/D5W 50 ML 2 GM/50 ML BAG IVPB (12:02)
[2025-03-23] MEDS: BUPIVACAINE/EPINEPHRINE 0.5% 50 ML VIAL 30 ML INFILTRATE (12:19)
[2025-03-23 12:23] LABS: BEDSIDEPREGUCG Negative (Negative)
--- NOTE | 2025-03-23 13:17 | W.PM.PROC2 ---
Procedure Note - Detailed Date of Procedure 03/23/25 Pre-op Diagnosis chronic cholecystitis with stones Post-op Diagnosis Same Procedure Performed Laparoscopic cholecystectomy Surgeon Brodie Kennedy MD Machine I Trimmer Lucita MENDENHALLA Anesthesia General and Local Indications Patient has had episodes of postprandial right upper quadrant severe pain with nausea. These have come on after fatty meals. She had an ultrasound that showed probable gallstones in the neck of the gallbladder. She is taken to surgery now for laparoscopic cholecystectomy. Findings Mild chronic inflammation, normal appearing liver, no biliary ductal dilatation. Description of Procedure Patient was taken to surgery and induced into general anesthesia. The abdomen is prepped and draped. Trocars were placed in the usual fashion using 0.5% Marcaine with epinephrine. After insufflation, the patient was placed in reverse Trendelenburg. We used a laparoscopic aspirator and decompress the gallbladder. The cholecystotomy was closed with a Vicryl endoloop. We then retracted the gallbladder anterosuperiorly. There were several adhesions to takeoff of the gallbladder that were primarily omental adhesions. Eventually the adhesions were completely off the gallbladder. The gallbladder was retracted anterosuperiorly so that the infundibulum was exposed. With traction on the infundibulum, dissection was carried out in the cholecystohepatic triangle. The cystic duct and cystic artery were dissected out very clearly. We dissected the gallbladder off the liver over its lower half. Critical view was achieved. We securely clipped and divided the cystic artery and cystic duct. The gallbladder was then dissected free of its remaining peritoneal attachments to the liver. We placed the gallbladder in an Endo-Catch bag and then retrieved it through the 10 11 epigastric trocar. The trocar was replaced. We reviewed the gallbladder fossa and the right upper quadrant. There was no evidence of bleeding or bile leakage. We then evacuated CO2 and removed the trocar sleeves. Skin wounds were closed with subcuticular 4-0 Monocryl skin suture. The wounds were dressed with Exofin surgical adhesive. The patient was awakened and taken to recovery in good condition. Sponge and needle counts were correct x2. Estimated Blood Loss -5 Drains No Packing No Pathology Yes (Gallbladder) Complications None Condition Stable Disposition PACU [facility] Billing Surgery - Charge Forward: Surgery Billing (Laparoscopic cholecystectomy)
[2025-03-23] MEDS: fentaNYL CITRATE INJ (*CRX) 100 MCG/2 ML VIAL 25 MCG IV PUSH ×4 (13:30→13:41)
[2025-03-23] MEDS: HYDROmorphone HCL INJ (*CRX) 2 MG/ML VIAL 1 MG IV PUSH ×2 (13:45→13:53)
[2025-03-23] MEDS: diphenhydrAMINE HCl INJ 50 MG/ML VIAL 25 MG IV PUSH (14:32)
[2025-03-23] MEDS: SCOPOLAMINE 1 MG PATCH 1 PATCH TRANSDERM (14:34)
[2025-03-23] MEDS: oxyCODONE HCL (*CRX) 5 MG TAB IR PO (14:58)
== END 2025-03-23 15:35 | disposition home or self-care (01) ==
PROVIDERS: PCP Nurse Practitioner Family; Visit Provider Surgery
PROC: 0FT44ZZ Resection of Gallbladder, Percutaneous Endoscopic Approach (ICD-10-PCS; CPT 47562; principal; 2025-03-23 12:00)
DX: K80.10 Calculus of gallbladder with chronic cholecystitis without obstruction (principal); K66.0 Peritoneal adhesions (postprocedural) (postinfection); G89.18 Other acute postprocedural pain; F32.A Depression, unspecified; F17.290 Nicotine dependence, other tobacco product, uncomplicated; E66.9 Obesity, unspecified; Z68.33 Body mass index [BMI] 33.0-33.9, adult; Z79.891 Long term (current) use of opiate analgesic; Z98.890 Other specified postprocedural states; Z80.3 Family history of malignant neoplasm of breast
CPT/HCPCS: 47562; 36415; 80076; 82150; 83690; 88304; A9270; J0690; J1100; J1171; J1200; J1885; J2250; J2270; J2405; J2704; J3010; J7120